=== PATIENT | female | born 1985 | race African-American/Black ===

== ENCOUNTER 2024-05-07 21:48 | Inpatient (IN) | payer OTHER, MEDICAID, MEDICARE ==
[~2024-05-07] VITALS: Ht 167.6 cm; Wt 131.8 kg
[2024-05-07 23:21] LABS: BASOPHILS % 0.8 % (0.0-2.0); EOSINOPHILS % 2.4 % (0.0-5.0); HEMATOCRIT. 42.4 % (36.0-48.0); HEMOGLOBIN. 13.4 g/dL (12.0-16.0); LYMPHOCYTES % 13.4 % (20.0-50.0); MEAN CORPUSCULAR HEMOGLOBIN 29.6 pg (28.0-32.0); MEAN CORPUSCULAR HGB CONC 31.7 g/dL (31.0-37.0); MEAN CORPUSCULAR VOLUME 93.6 fL (81.0-99.0); MEAN PLATELET VOLUME 7.6 fl (7.4-10.4); MONOCYTES % 11.2 % (2.0-8.0); NEUTROPHILS % 72.2 % (40.0-76.0); PLATELET 263 x1000/uL (130-400); RED BLOOD CELL COUNT 4.54 mill/uL (4.2-5.4); RED CELL DISTRIBUTION WIDTH 13.7 % (11.6-14.6); WHITE BLOOD COUNT 11.4 x1000/uL (4.5-11.0)
[2024-05-07 23:26] LABS: CHLORIDE 107 mEq/L (98-107); POTASSIUM 3.7 mEq/L (3.5-5.1); SODIUM 139 mEq/L (136-145)
[2024-05-07 23:27] LABS: CALCIUM 9.4 mg/dL (8.7-10.4); CARBON DIOXIDE 27 mEq/L (21-32)
[2024-05-07 23:32] LABS: CREATININE 0.7 mg/dL (0.6-1.0); GLUCOSE 113 mg/dL (70-105); UREA NITROGEN BLOOD 8 mg/dL (9-23)
[2024-05-07 23:41] LABS: TROPONIN I HIGH SENSITIVITY < 4 ng/L (3.0-34)
[2024-05-08 01:30] LABS: HCG SCREEN NEGATIVE
[2024-05-08 01:36] LABS: ALANINE AMINOTRANSFERASE 17 IU/L (10-49); ALBUMIN 4.7 g/dL (3.2-4.8); ASPARTATE AMINOTRANSFERASE 20 IU/L (<34); BILIRUBIN DIRECT 0.1 mg/dL (<=3.0); BILIRUBIN TOTAL 0.4 mg/dL (0.1-1.0); PROTEIN TOTAL 7.6 g/dL (6.0-8.3)
[2024-05-08] MEDS: ACETAMINOPHEN 1000MG/100ML 100 ML IV NR (02:11)
[2024-05-08] MEDS ORDERED: ALBUTEROL (0.083%) 2.5MG/3ML NEB HHN STA (05:44)
[2024-05-08] MEDS ORDERED: ONDANSETRON HCL 4MG/2ML INJ IV PRN (08:15)
[2024-05-08] MEDS ORDERED: DOCUSATE SODIUM 100MG CAPSULE PO PRN (08:15)
[2024-05-08] MEDS ORDERED: ACETAMINOPHEN 325MG TABLET PO PRN ×2 (08:15)
[2024-05-08] MEDS ORDERED: CLONIDINE 0.1MG TABLET PO PRN (08:15)
[2024-05-08 08:37] VITALS: PULSE 78; RESP 18; O2SAT 98
[2024-05-08] MEDS: IPRATROPIUM/ALBUTEROL 0.5-3(2.5)MG/3ML NEB HHN PRN (08:37)
[2024-05-08 10:33] LABS: TROPONIN I HIGH SENSITIVITY < 4 ng/L (3.0-34)
[2024-05-08 16:00] VITALS: BP 110/63; PULSE 86; RESP 16; TEMP 98.8
[2024-05-08 16:17] VITALS: BP 110/63; PULSE 86; RESP 16; TEMP 98.8
[2024-05-08 16:22] LABS: T4 FREE 1.36 ng/dL (0.89-1.76); THYROID STIMULATING HORMONE 1.48 uIU/mL (0.55-4.78)
[2024-05-08] MEDS ORDERED: GUAIFENESIN/CODEINE 200-20MG/10ML UDC PO PRN (16:30)
[2024-05-08] MEDS: GUAIFENESIN-DM 200MG-20MG/10ML UDC PO PRN (16:59)
[2024-05-08] MEDS: IOHEXOL-350 100 ML BOTTLE ONE ×2 (17:15→21:44)
[2024-05-08 17:23] LABS: CLARITY URINE CLEAR (CLEAR); COLOR URINE YELLOW (YELLOW); GLUCOSE URINE NEGATIVE (NEGATIVE); KETONES URINE NEGATIVE (NEGATIVE); LEUKOCYTE ESTERASE URINE NEGATIVE (NEGATIVE); NITRITE URINE NEGATIVE (NEGATIVE); OCCULT BLOOD URINE NEGATIVE (NEGATIVE); PH URINE 6.5 (4.5-8.0); PROTEIN URINE NEGATIVE (NEGATIVE); SPECIFIC GRAVITY URINE 1.015 (1.005-1.030)
[2024-05-08 17:40] LABS: *AMPHETAMINES SCREEN URINE NEGATIVE (NEGATIVE); *BARBITURATES SCREEN URINE NEGATIVE (NEGATIVE); *BENZODIAZEPINES SCREEN URINE NEGATIVE (NEGATIVE); *COCAINE SCREEN URINE NEGATIVE (NEGATIVE); METHADONE URINE SCREEN NEGATIVE (NEGATIVE)
[2024-05-08 17:41] LABS: CANNABINOID URINE SCREEN NEGATIVE (NEGATIVE); ECSTASY MDMA SCREEN URINE NEGATIVE (NEGATIVE); OPIATES URINE SCREEN NEGATIVE (NEGATIVE); PHENCYCLIDINE URINE SCREEN NEGATIVE (NEGATIVE)
[2024-05-08 17:58] VITALS: PULSE 77; RESP 18; O2SAT 98
[2024-05-08 20:00] VITALS: BP 120/70; PULSE 85; RESP 18; TEMP 97.2
[2024-05-08] MEDS: HYDROCODONE/ACETAMINOPHEN 5/325MG TABLET PO PRN (20:17)
[2024-05-08] MEDS: ENOXAPARIN 30MG/0.3ML SYR SUBCUT SCH (20:21)
[2024-05-09] VITALS (7 sets, daily range): BP systolic 113–137; BP diastolic 64–90; PULSE 70–84; RESP 17–22; TEMP 97.4–98.3; O2SAT 96
[2024-05-09 00:15] LABS: TROPONIN I HIGH SENSITIVITY < 4 ng/L (3.0-34)
[2024-05-09] MEDS: SODIUM CHLORIDE 0.9% 1,000 ML IV SCH (02:00)
[2024-05-09] MEDS: KETOROLAC 30MG/ML VIAL IV SCH (02:13)
[2024-05-09 07:12] LABS: CHLORIDE 107 mEq/L (98-107); POTASSIUM 4.6 mEq/L (3.5-5.1); SODIUM 137 mEq/L (136-145)
[2024-05-09 07:13] LABS: CARBON DIOXIDE 25 mEq/L (21-32)
[2024-05-09 07:14] LABS: BASOPHILS % 0.6 % (0.0-2.0); CALCIUM 9.1 mg/dL (8.7-10.4); EOSINOPHILS % 3.2 % (0.0-5.0); HEMATOCRIT. 35.8 % (36.0-48.0); HEMOGLOBIN. 11.8 g/dL (12.0-16.0); LYMPHOCYTES % 18.7 % (20.0-50.0); MEAN CORPUSCULAR HEMOGLOBIN 30.4 pg (28.0-32.0); MEAN CORPUSCULAR HGB CONC 32.9 g/dL (31.0-37.0); MEAN CORPUSCULAR VOLUME 92.3 fL (81.0-99.0); MEAN PLATELET VOLUME 7.7 fl (7.4-10.4); MONOCYTES % 13.8 % (2.0-8.0); NEUTROPHILS % 63.7 % (40.0-76.0); PLATELET 239 x1000/uL (130-400); RED BLOOD CELL COUNT 3.88 mill/uL (4.2-5.4); RED CELL DISTRIBUTION WIDTH 13.7 % (11.6-14.6); WHITE BLOOD COUNT 7.8 x1000/uL (4.5-11.0)
[2024-05-09 07:18] LABS: CREATININE 0.6 mg/dL (0.6-1.0); UREA NITROGEN BLOOD 13 mg/dL (9-23)
[2024-05-09 07:19] LABS: GLUCOSE 90 mg/dL (70-105)
[2024-05-09 07:24] LABS: TROPONIN I HIGH SENSITIVITY < 4 ng/L (3.0-34)
[2024-05-09] MEDS ORDERED: NALOXONE HCL 0.4MG/ML VIAL IV PRN (08:30)
[2024-05-09] MEDS ORDERED: PANTOPRAZOLE SODIUM 40 MG/VIAL IV SCH (09:00)
[2024-05-09] MEDS ORDERED: PALI6TAB PO (13:56)
[2024-05-09] MEDS: CEFTRIAXONE 1GM/50ML 50 ML IV SCH (15:27)
[2024-05-09] MEDS: AZITHROMYCIN 500MG/250ML 250 ML IV SCH (15:34)
[2024-05-09 15:41] LABS: TROPONIN I HIGH SENSITIVITY < 4 ng/L (3.0-34)
[2024-05-09] MEDS: FAMOTIDINE 20MG TABLET PO SCH (21:48)
[2024-05-09] MEDS: RISPERIDONE 1MG TABLET PO SCH (21:49)
[2024-05-10] VITALS (8 sets, daily range): BP systolic 106–125; BP diastolic 66–92; PULSE 73–92; RESP 12–24; TEMP 97.8–98.8
[2024-05-10] MEDS: ENOXAPARIN 40MG/0.4ML SYR SUBCUT SCH (22:04)
[2024-05-11] VITALS: BP 122/81; PULSE 81; RESP 19; TEMP 98.3
[2024-05-11 04:00] VITALS: PULSE 66; RESP 18
[2024-05-11 06:21] LABS: CARBON DIOXIDE 27 mEq/L (21-32); CHLORIDE 105 mEq/L (98-107); POTASSIUM 4.5 mEq/L (3.5-5.1); SODIUM 137 mEq/L (136-145)
[2024-05-11 06:25] LABS: BASOPHILS % 0.8 % (0.0-2.0); CREATININE 0.6 mg/dL (0.6-1.0); EOSINOPHILS % 2.3 % (0.0-5.0); LYMPHOCYTES % 16.4 % (20.0-50.0); MEAN CORPUSCULAR HEMOGLOBIN 30.1 pg (28.0-32.0); MEAN CORPUSCULAR HGB CONC 32.5 g/dL (31.0-37.0); MEAN CORPUSCULAR VOLUME 92.6 fL (81.0-99.0); MEAN PLATELET VOLUME 7.9 fl (7.4-10.4); NEUTROPHILS % 72.5 % (40.0-76.0); PLATELET 280 x1000/uL (130-400); RED CELL DISTRIBUTION WIDTH 13.2 % (11.6-14.6); WHITE BLOOD COUNT 10.9 x1000/uL (4.5-11.0)
[2024-05-11 06:27] LABS: GLUCOSE 79 mg/dL (70-105); UREA NITROGEN BLOOD 15 mg/dL (9-23)
[2024-05-11 08:00] VITALS: PULSE 74; RESP 23; TEMP 98
[2024-05-11] MEDS ORDERED: AZIT500T8 MT (10:05)
[2024-05-11] MEDS ORDERED: FAMO20TA8 PO (10:05)
[2024-05-11 10:35] VITALS: BP 122/81; PULSE 74; TEMP 98; O2SAT 96
[2024-05-11 11:00] VITALS: PULSE 76; RESP 24
[2024-05-11 13:00] VITALS: PULSE 86; RESP 17
[2024-05-11] MEDS ORDERED: BENZ100C86 MT (13:23)
[2024-05-11] MEDS ORDERED: GUAI600T44 MT (13:23)
[2024-05-11] MEDS ORDERED: ALBU18HF2 IH (13:23)
== END 2024-05-11 16:10 | disposition home or self-care (01) | DRG 193 ==
LOC: ER 21:48 → 5WST 05-08 06:12 → EDBEDREQTM 05-08 06:40 → EDBEDREQ 05-08 06:40 → 3WST 05-08 15:10
PROVIDERS: ADMIT Family Medicine Adult Medicine; ATTEND Family Medicine Adult Medicine
DX: J18.9 Pneumonia, unspecified organism (principal); J96.00 Acute respiratory failure, unspecified whether with hypoxia or hypercapnia; Z68.42 Body mass index [BMI] 45.0-49.9, adult; M94.0 Chondrocostal junction syndrome [Tietze]; J45.909 Unspecified asthma, uncomplicated; F25.9 Schizoaffective disorder, unspecified; E66.01 Morbid (severe) obesity due to excess calories; Z20.822 Contact with and (suspected) exposure to COVID-19; D72.829 Elevated white blood cell count, unspecified; R79.89 Other specified abnormal findings of blood chemistry; I10 Essential (primary) hypertension; F17.210 Nicotine dependence, cigarettes, uncomplicated; Z98.891 History of uterine scar from previous surgery
CPT/HCPCS: 36415; 71045; 71275; 80048; 80076; 80305; 81003; 83880; 84439; 84443; 84481; 84484; 84703; 85025; 85379; 87426; 93005; 93306; 93970; 94640; 99285; J0456; J0696; J1650; J1885; Q9967; J0131